=== PATIENT | female | born 1965 | race Caucasian/White ===

== ENCOUNTER 2018-02-06 16:20 | Emergency (ER) | payer OTHER ==
[~2018-02-06] VITALS: Ht 154.9 cm; Wt 84.8 kg
[2018-02-06 18:52] VITALS: BP 160/90
== END 2018-02-06 18:53 | disposition home or self-care (01) ==
LOC: FSED 16:20
DX: S63.502A Unspecified sprain of left wrist, initial encounter (principal); W18.39XA Other fall on same level, initial encounter; Y92.008 Other place in unspecified non-institutional (private) residence as the place of occurrence of the external cause; I10 Essential (primary) hypertension; E78.5 Hyperlipidemia, unspecified
CPT/HCPCS: 99283

== ENCOUNTER 2021-04-25 20:04 | Emergency (ER) | payer BC, OTHER ==
[~2021-04-25] VITALS: Ht 160 cm; Wt 89.4 kg
[2021-04-25] MEDS ORDERED: KETOROLAC TROMETHAMINE 30 MG/ML VIAL IM STA (20:35)
[2021-04-25] MEDS ORDERED: CYCLOBENZAPRINE HCL 10 MG TAB PO ONE (20:45)
[2021-04-25] MEDS ORDERED: HYDROCODONE/APAP 5MG-325MG TAB PO ONE (21:00)
[2021-04-25] MEDS ORDERED: LIDOCAINE PAIN1 EACH TD (22:01)
== END 2021-04-25 22:30 | disposition home or self-care (01) ==
LOC: FSED 20:20
DX: M25.552 Pain in left hip (principal); M25.551 Pain in right hip; M53.3 Sacrococcygeal disorders, not elsewhere classified; V19.3XXA Pedal cyclist (driver) (passenger) injured in unspecified nontraffic accident, initial encounter; Y93.55 Activity, bike riding; Y92.89 Other specified places as the place of occurrence of the external cause; I10 Essential (primary) hypertension; E78.5 Hyperlipidemia, unspecified
CPT/HCPCS: 72170; 72220; 99283

== ENCOUNTER 2022-02-06 07:54 | Observation (INO) | payer BC ==
[~2022-02-06] VITALS: Ht 152.4 cm; Wt 85.7 kg
[~2022-02-06 07:54] MED LIST: LIDOCAINE PAIN1 EACH TD
[2022-02-06] MEDS ORDERED: METHYLPREDNISOLONE SOD SUCC 125 MG/2ML VIAL IV ONE (08:00)
[2022-02-06] MEDS ORDERED: ALBUTEROL/IPRATROPIUM 3 ML NEB NEB ONE ×2 (08:00)
[2022-02-06] MEDS: ALBUTEROL/IPRATROPIUM 3 ML NEB NEB NR ×3 (08:00→08:35)
[2022-02-06] MEDS ORDERED: SODIUM CHLORIDE FLUSH 10 ML SYR IV PRN (08:00)
[2022-02-06 08:18] LABS: BASOPHILS # (AUTO) 0.1 (0.0-0.1); BASOPHILS % 0.9 % (0.0-1.0); EOSINOPHILS # (AUTO) 0.1 (0.0-0.4); EOSINOPHILS % 1.9 % (0.0-6.0); HEMATOCRIT 39.1 % (34.2-44.1); HEMOGLOBIN 12.5 g/dL (12.0-16.0); LYMPHOCYTES # (AUTO) 1.6 (1.0-3.2); LYMPHOCYTES % 23.3 % (18.0-39.1); MEAN CORPUSCULAR HEMOGLOBIN 30.3 pg (28-32); MEAN CORPUSCULAR VOLUME 94.9 fL (81-99); MONOCYTES # (AUTO) 0.9 (0.2-0.8); MONOCYTES % 13.7 % (4.4-11.3); NEUTROPHILS % 59.8 % (38.7-80.0); PLATELET COUNT 242 x10e3/uL (140-360); RED BLOOD COUNT 4.12 x10e6/uL (3.6-5.1); RED CELL DISTRIBUTION WIDTH 13.2 % (11.7-14.4)
[2022-02-06 08:39] LABS: ALANINE AMINOTRANSFERASE 27 IU/L (0-55); ALBUMIN 3.9 g/dL (3.5-5.0); ALBUMIN/GLOBULIN RATIO 1.2 (0.8-2.0); ALKALINE PHOSPHATASE 64 IU/L (40-150); ANION GAP 12.7 mmol/L (8-16); BLOOD UREA NITROGEN 13 mg/dL (7-26); BUN/CREATININE RATIO 18 (6-25); CALCIUM 8.9 mg/dL (8.4-10.2); CARBON DIOXIDE 26 mmol/L (22-29); CHLORIDE 108 mmol/L (98-107); CREATININE, SERUM 0.72 mg/dL (0.57-1.11); GLUCOSE 95 mg/dL (74-118); POTASSIUM 3.7 mmol/L (3.5-5.1); SODIUM 143 mmol/L (136-145)
[2022-02-06] MEDS ORDERED: IOPAMIDOL 370 MG/ML 100 ML INFUS..BTL INJ ONE (09:07)
[2022-02-06] MEDS ORDERED: BEBTELOVIMAB 175 MG INJ IV ONE (09:15)
[2022-02-06] MEDS ORDERED: ONDANSETRON HCL INJ 2MG/ML 2ML 2 MG/ML VIAL IV STA (09:15)
[2022-02-06] MEDS ORDERED: CYCLOBENZAPRINE HCL 10 MG TAB PO SCH (09:15)
[2022-02-06] MEDS ORDERED: ONDANSETRON HCL INJ 2MG/ML 2ML 2 MG/ML VIAL ONE (09:30)
[2022-02-06] MEDS ORDERED: LORAZEPAM INJ 2 MG/ML VIAL IV NR (10:15)
[2022-02-06] MEDS ORDERED: GUAIFENESIN 200 MG/10 ML UDC PO PRN (10:15)
[2022-02-06] MEDS ORDERED: ONDANSETRON HCL INJ 2MG/ML 2ML 2 MG/ML VIAL IV PRN (11:00)
[2022-02-06] MEDS ORDERED: ALBUTEROL/IPRATROPIUM 3 ML NEB NEB PRN (11:00)
[2022-02-06 11:21] LABS: CLARITY,URINE CLEAR (CLEAR); COLOR,URINE YELLOW (YELLOW)
[2022-02-06 11:22] LABS: KETONES,URINE NEGATIVE (NEGATIVE); LEUKOCYTE ESTERASE ,URINE NEGATIVE (NEGATIVE); NITRITE,URINE NEGATIVE (NEGATIVE); PROTEIN,URINE DIPSTICK NEGATIVE (NEGATIVE); URINE UROBILINOGEN 0.2 mg/dL (0.2 - 1)
[2022-02-06 11:30] LABS: BACTERIA,URINE FEW /HPF; EPITHELIAL CELLS,URINE FEW /LPF
[2022-02-06] MEDS: DEXAMETHASONE SOD PHOS INJ 4 MG/ML SDV IV SCH (11:42)
[2022-02-06 11:53] VITALS: BP 130/76
[2022-02-06 13:00] VITALS: BP 130/76
[2022-02-06 13:42] LABS: CHOL/HDL RATIO 2.7 (3.0-3.6)
[2022-02-06] MEDS ORDERED: BENICAR5 MG PO (13:42)
[2022-02-06] MEDS ORDERED: OXYCODONE HCL20 M1 PO (13:42)
[2022-02-06] MEDS ORDERED: HYDRALAZINE HCL10 MG PO (13:42)
[2022-02-06] MEDS ORDERED: TIZANIDINE HCL4 M1 PO (13:42)
[2022-02-06] MEDS ORDERED: AMITRIPTYLINE H10 MG PO (13:42)
[2022-02-06] MEDS ORDERED: CYCLOBENZAPRINE5 MG PO (13:42)
[2022-02-06] MEDS ORDERED: GRALISE300 MG PO (13:42)
[2022-02-06] MEDS ORDERED: MELOXICAM7.5 MG PO (13:42)
[2022-02-06] MEDS ORDERED: ALLEGRA ALLERGY60 MG PO (13:42)
[2022-02-06] MEDS: BENZONATATE 100 MG CAP PO SCH ×2 (15:20→19:35)
[2022-02-06 16:00] VITALS: BP 133/66
[2022-02-06] MEDS ORDERED: ENOXAPARIN SOD INJ 40 MG/0.4 ML SYR SC SCH (17:00)
[2022-02-06] MEDS: FAMOTIDINE 20 MG TAB PO SCH (17:44)
[2022-02-06] MEDS: GUAIFENESIN/DEXTROMETHORPHAN LIQD 5 ML UDC NG PRN (17:44)
[2022-02-06] MEDS ORDERED: PERCOCET 10-321 EACH PO (18:36)
[2022-02-06] MEDS ORDERED: BENICAR HCT 401 EAC1 PO (18:36)
[2022-02-06 19:58] VITALS: BP 123/74
[2022-02-06 22:39] VITALS: BP 123/74
[2022-02-06] MEDS ORDERED: AMITRIPTYLINE HCL 10 MG TAB PO SCH (23:45)
[2022-02-06] MEDS ORDERED: OXYCODONE HCL IR 5 MG TAB PO PRN (23:45)
[2022-02-06] MEDS ORDERED: OXYCODONE/ACETAMINOPHEN 5-325 1 EACH TABLET PO PRN (23:45)
[2022-02-06 23:52] VITALS: BP 115/72
[2022-02-07] MEDS ORDERED: TIZANIDINE HCL 4 MG TAB PO ONE (00:15)
[2022-02-07 05:20] VITALS: BP 93/59
[2022-02-07] MEDS: GUAIFENESIN/DEXTROMETHORPHAN LIQD 5 ML UDC NG PRN (05:51)
[2022-02-07 06:38] LABS: BASOPHILS % 0.1 % (0.0-1.0); EOSINOPHILS % 0.2 % (0.0-6.0); HEMATOCRIT 35.3 % (34.2-44.1); HEMOGLOBIN 11.7 g/dL (12.0-16.0); LYMPHOCYTES # (AUTO) 2.1 (1.0-3.2); LYMPHOCYTES % 23.7 % (18.0-39.1); MEAN CORPUSCULAR HEMOGLOBIN 31.1 pg (28-32); MEAN CORPUSCULAR HGB CONC 33.1 g/dL (31-35); MEAN CORPUSCULAR VOLUME 93.9 fL (81-99); MONOCYTES # (AUTO) 0.9 (0.2-0.8); MONOCYTES % 9.4 % (4.4-11.3); NEUTROPHILS % 66.2 % (38.7-80.0); PLATELET COUNT 235 x10e3/uL (140-360); RED BLOOD COUNT 3.76 x10e6/uL (3.6-5.1); RED CELL DISTRIBUTION WIDTH 13.1 % (11.7-14.4)
[2022-02-07 07:16] LABS: ANION GAP 14.3 mmol/L (8-16); CALCIUM 8.7 mg/dL (8.4-10.2); CREATININE, SERUM 0.68 mg/dL (0.57-1.11); POTASSIUM 3.3 mmol/L (3.5-5.1)
[2022-02-07] MEDS: FAMOTIDINE 20 MG TAB PO SCH (08:00)
[2022-02-07 08:24] VITALS: BP 115/71
[2022-02-07 09:00] VITALS: BP 115/71
[2022-02-07] MEDS ORDERED: TIZANIDINE HCL 4 MG TAB PO SCH (09:15)
[2022-02-07] MEDS: BENZONATATE 100 MG CAP PO SCH (09:40)
[2022-02-07] MEDS ORDERED: PREDNISONE20 MG PO (12:09)
[2022-02-07] MEDS ORDERED: CEPHALEXIN500 MG PO (12:09)
[2022-02-07] MEDS ORDERED: ZITHROMAX500 MG PO (12:09)
[2022-02-07] MEDS ORDERED: MUCINEX DM ER1 EACH PO (12:09)
[2022-02-07] MEDS ORDERED: Benzonatate PO (12:09)
[2022-02-07] MEDS ORDERED: LORATADINE10 MG PO (12:11)
[2022-02-07] MEDS: DEXAMETHASONE SOD PHOS INJ 4 MG/ML SDV IV SCH (12:45)
[2022-02-07 12:49] VITALS: BP 126/79
[2022-02-08] MEDS ORDERED: GRALISE PO SCH (09:00)
== END 2022-02-07 13:55 | disposition home or self-care (01) ==
LOC: ER 07:59 → ERHOLD 11:00 → MED/SURG3 11:53
PROVIDERS: ADMIT Internal Medicine; ATTEND Internal Medicine
DX: U07.1 COVID-19 (principal); J20.8 Acute bronchitis due to other specified organisms; N20.0 Calculus of kidney; E66.9 Obesity, unspecified; Z68.36 Body mass index [BMI] 36.0-36.9, adult; N39.0 Urinary tract infection, site not specified; I10 Essential (primary) hypertension
CPT/HCPCS: 36415 ×2; 71045 ×2; 71260; 80048; 80053; 80061; 81001; 83036; 83735; 83880; 84484; 85025 ×2; 93005; 94640; 94760; 94799 ×2; 99284; G0378 ×2; J0696; J1100; J1650; J2060; J2405; J2930; Q9967; U0002